=== PATIENT | male | born 1955 | race Native Hawaiian/Other Pacific Islander ===

== ENCOUNTER 2016-12-13 11:22 | Outpatient (CLI) | payer OTHER ==
[~2016-12-13 11:22] MED LIST: ALBUTEROL0.083 % IN; AMOX875T8 PO; BUDE1AER5 INH; CHERRY PO; CLARITIN10 M1 PO; CODEINE ELIXIR PO; CYCL10TA35 PO; ENALAPRIL20 MG PO; MEDROL DOSEPAK4 MG OR; MEDROL DOSEPAK4 MG PO; MICROZIDE12.5 MG PO; PEPCID40 MG PO; PROAIR HFA IN; PROVENTIL HFA; TIOTCAP2 INH; TUSSIN PO; Z-PAK PO
[2016-12-13 12:17] LABS: PLATELET COUNT 212 K/uL (142-355)
[2016-12-13 12:45] LABS: SODIUM 140 mmol/L (136-145)
== END 2016-12-13 12:30 | disposition home or self-care (01) ==
LOC: LAB 11:22
PROVIDERS: Family Medicine
DX: I10 Essential (primary) hypertension (principal); J43.8 Other emphysema; E66.8 Other obesity; Z99.81 Dependence on supplemental oxygen; F41.8 Other specified anxiety disorders; E55.9 Vitamin D deficiency, unspecified; N40.0 Benign prostatic hyperplasia without lower urinary tract symptoms
CPT/HCPCS: 80053; 80061; 81000; 82043; 82306; 82570; 83735; 84153; 84439; 84443; 84550; 85027

== ENCOUNTER 2020-02-03 13:12 | Outpatient (CLI) | payer OTHER | END 2020-02-03 22:29 | disposition home or self-care (01) | LOC: LAB 13:12 | DX: F41.9 Anxiety disorder, unspecified (principal); G89.4 Chronic pain syndrome; R05 Cough; R06.02 Shortness of breath | CPT/HCPCS: 87635; G2023; U0003 ==

== ENCOUNTER 2020-12-21 03:38 | Inpatient (IN) | payer OTHER ==
[2021-01-03 07:27] LABS: PARTIAL THROMBOPLASTIN TIME 26.1 SECONDS (24.5-33.6)
[2021-01-03 07:28] LABS: POTASSIUM 4.1 mmol/L (3.6-5.2); SODIUM 134 mmol/L (136-145)
[2021-01-03 07:30] LABS: PLATELET COUNT 323 K/uL (142-355)
[2021-01-03 10:29] LABS: PLATELET COUNT 323 K/uL (142-355)
[2021-01-03 10:30] LABS: POTASSIUM 4.1 mmol/L (3.6-5.2)
== END 2020-12-23 11:35 | disposition home or self-care (01) | DRG 190 ==
LOC: ED 03:38 → MED/SURG 05:12
PROVIDERS: ADMIT Hospitalist; ATTEND Family Medicine
DX: J44.0 Chronic obstructive pulmonary disease with (acute) lower respiratory infection (principal); J18.8 Other pneumonia, unspecified organism; J20.9 Acute bronchitis, unspecified; J44.1 Chronic obstructive pulmonary disease with (acute) exacerbation; I10 Essential (primary) hypertension; R73.9 Hyperglycemia, unspecified; Z99.81 Dependence on supplemental oxygen; D72.828 Other elevated white blood cell count; D64.89 Other specified anemias
CPT/HCPCS: 36415; 36600; 80053; 82550; 82553; 82805; 83880; 84484; 85027; 85610; 85730; 87040; 87635; 87651; 93005; 94640; 94664; 94667; 94668; 96365; 96366; 96375; 99284; Q9963; U0003